=== PATIENT | female | born 1985 | race Caucasian/White ===

== ENCOUNTER 2018-02-01 02:14 | Inpatient (IN) ==
[2018-02-01] MEDS ORDERED: Propofol Inj 500 MG/50 ML Vial IV.PUSH ONE (02:19)
[2018-02-01] MEDS ORDERED: Propofol Inj 500 MG/50 ML Vial ONE (02:20)
[2018-02-01 02:44] LABS: Baso % (Auto) 0.5 % (0.0-2.0); Eos # (Auto) 0.1 th/mm3 (0.0-0.4); Eos % (Auto) 0.8 % (0.0-4.0); Hematocrit 36.7 % (35.0-46.0); Hemoglobin 12.3 gm/dL (11.6-15.3); Lymph # (Auto) 3.9 th/mm3 (1.0-4.8); Lymph % (Auto) 44.3 % (9.0-44.0); Mean Corpuscular HGB Conc 33.4 % (32.0-36.0); Mean Corpuscular Hemoglobin 29.6 pg (27.0-34.0); Mean Corpuscular Volume 88.6 fL (80.0-100.0); Mean Platelet Volume 8.3 fL (7.0-11.0); Mono # (Auto) 0.7 th/mm3 (0.0-0.9); Mono % (Auto) 7.4 % (0.0-8.0); Neut # (Auto) 4.1 th/mm3 (1.8-7.7); Platelet Count 312 th/mm3 (150-450); Red Blood Count 4.15 mil/mm3 (4.00-5.30); Red Cell Distribution Width 13.5 % (11.6-17.2); White Blood Count 8.8 th/mm3 (4.0-11.0)
[2018-02-01] MEDS: Propofol 1000 mg/100 ml Inj 1,000 MG/100 ML BOTTLE IV.CONT PRN ×2 (02:44→08:45)
[2018-02-01 03:01] LABS: Alanine Aminotransferase 14 U/L (10-53); Albumin 3.8 g/dL (3.4-5.0); Anion Gap 8 meq/L (5-15); Aspartate Aminotransferase 12 U/L (15-37); Blood Urea Nitrogen 12 mg/dL (7-18); Calcium 8.3 mg/dL (8.5-10.1); Carbon Dioxide 21.7 meq/L (21.0-32.0); Chloride 116 meq/L (98-107); Glomerular Filtration Rate 86 mL/min (>89); Glucose,Random 97 mg/dL (74-106); Potassium 3.1 meq/L (3.5-5.1); Sodium 146 meq/L (136-145)
[2018-02-01 03:04] LABS: Alkaline Phosphatase 55 U/L (45-117); Total Protein 7.2 g/dL (6.4-8.2)
[2018-02-01 03:09] LABS: Bacteria,Urine Rare /hpf; Bilirubin,Urine Negative (Negative); Clarity,Urine Clear (Clear); Color,Urine Straw (Yellw/Straw); Glucose,Urine (UA) Negative (Negative); Leukocyte Esterase,Urine Negative (Negative); Nitrite,Urine Negative (Negative); Specific Gravity,Urine 1.003 (1.002-1.035)
[2018-02-01 03:14] LABS: ABG Base Excess -6.7 mmol/L (-2-2); ABG PCO2 40 mmHg (38-42); ABG PO2 186 mmHg (61-120)
--- NOTE | 2018-02-01 03:21 | XR ---
EXAM DATE: 02/01/2018 3:04 AM EDT AGE/SEX: 32 years / Female INDICATIONS: Post intubation. CLINICAL DATA: This is the patient's initial encounter. Patient reports that signs and symptoms have been present for 1 day and indicates a pain score of Nonresponsive. MEDICAL/SURGICAL HISTORY: Non-responsive. Non-responsive. COMPARISON: No prior exams available for comparison. FINDINGS: Portable AP view of the chest demonstrates a normal-sized cardiac silhouette. Lungs are underinflated . Endotracheal tube is present with tip at the aortic knob level measuring 1.5 cm from the adriana. Na sogastric tube distal tip is in the stomach. EKG lines overlie the patient. Lungs are underinflated w ith mild atelectasis at the lung bases. No effusion, consolidation, or pneumothorax is identified. Th e bones and soft tissues demonstrate no acute finding. CONCLUSION: 1. Endotracheal tube tip measures 1.5 cm from the adriana. 2. Underinflated examination with mild atelectasis at the lung bases. Otherwise, no acute pulmonary abnormality is identified. Electronically signed by: Popeye Roberto MD 02/01/2018 3:19 AM EDT
--- NOTE | 2018-02-01 05:47 | ED ---
HPI General Chief Complaint: Altered Mental Status Stated Complaint: ETOH Time Seen by Provider: 02/01/18 02:18 History of Present Illness HPI narrative: Patient apparently was at a bar dancing and then slowly fell on the floor unresponsive EVAC found her covered in vomit and intubated her because she airway was uncontrolled unprotected airway intubated without complications in route he had to sedate her with etomidate and Versed now patient is intubated sedated and ROS and HPI is limited due to the fact the patient is intubated and unconscious due to severe intoxication Related Data Home Medications Medication Instructions Recorded Confirmed Unable to Obtain Home Meds 02/01/18 02/01/18 Allergies Allergy/AdvReac Type Severity Reaction Status Date / Time Sulfa (Sulfonamide Allergy Unknown Burning Verified 02/01/18 13:54 Antibiotics) Review of Systems ROS Unobtainable ROS Unobtainable: unobtainable due to endotracheal tube PMFSH Medical History Medical History Medical history unknown (Acute) Surgical history unknown (Acute) Surgical History Surgical History No history of previous surgery (Acute) Social History Social History Substance History: No History of Abuse Second Hand Smoke Exposure: No Smoking Status: Never smoker How Often Do You Have a Drink Containing Alcohol: 2 to 4 times a month Recent Travel in [facility] within the Last 8 Weeks: No Recent Out of Country Travel within the Last 8 Weeks: No Immunization History Tetanus Immunization: Unable to Assess Hx Influenza Vaccine This Season: Unable to Assess Exam Narrative Exam Narrative: GENERAL: sedated and intubated unresponsive recent etomidat and versed in EVAC SKIN: Warm and dry. HEAD: Atraumatic. Normocephalic. EYES: Pupils equal very dilated reactive sluggish No injection or drainage. ENT: No nasal bleeding or discharge. Mucous membranes pink and moist. ET TUBE IN PLACED CONFIRMED BY KATARINA LOZANO NECK: Trachea midline. No JVD. CARDIOVASCULAR: Regular rate and rhythm. RESPIRATORY: auscultated at axilla bilateral ET TUBE INFLATING GOOD CHEST RISE Breath sounds equal bilaterally. GASTROINTESTINAL: Abdomen soft, non-tender, nondistended. Hepatic and splenic margins not palpable. MUSCULOSKELETAL: Extremities without clubbing, cyanosis, or edema. No obvious deformities. NEUROLOGICAL: obtunded now sedated. Course Initial Documented Vital Signs Temperature 98.3 F 02/01/18 02:17 Pulse Rate 95 H 02/01/18 02:17 Respiratory Rate 16 02/01/18 02:17 Blood Pressure 116/77 02/01/18 02:17 Pulse Oximetry 100 02/01/18 02:17 Last Documented Vital Signs Temperature 98.0 F 02/02/18 12:00 Pulse Rate 97 H 02/02/18 12:00 Respiratory Rate 16 02/02/18 12:00 Blood Pressure 116/72 02/02/18 12:00 Pulse Oximetry 99 02/02/18 12:00 Critical Care Time Critical Care Time: Yes Total Critical Care Time: 30 Attestation: sedating for ventilator adjust vent settings and propfol drip ordered O2 sat re-eval frequently during ED stay until in ICU Medical Decision Making MDM Narrative Medical decision making narrative: pt sedated and vent settings adjusted and ABG and propfol rate adjusted and admit ICU Differential Diagnosis Differential Diagnosis: eoth overdose vs polysubstance overdose vs accidental opioid overdose vs rohipnol by another at club vs RX meds interacting with ETOH Lab Data Result diagrams: 02/01/18 02:33 02/02/18 07:16 Lab Results 02/01/18 02/01/18 02/01/18 Range/Units 02:33 02:33 02:33 WBC 8.8 (4.0-11.0) th/mm3 RBC 4.15 (4.00-5.30) mil/mm3 Hgb 12.3 (11.6-15.3) gm/dL Hct 36.7 (35.0-46.0) % MCV 88.6 (80.0-100.0) fL MCH 29.6 (27.0-34.0) pg MCHC 33.4 (32.0-36.0) % RDW 13.5 (11.6-17.2) % Plt Count 312 (150-450) th/mm3 MPV 8.3 (7.0-11.0) fL Neut % (Auto) 47.0 (16.0-70.0) % Lymph % (Auto) 44.3 H (9.0-44.0) % [place] % (Auto) 7.4 (0.0-8.0) % Eos % (Auto) 0.8 (0.0-4.0) % Baso % (Auto) 0.5 (0.0-2.0) % Neut # (Auto) 4.1 (1.8-7.7) th/mm3 Lymph # (Auto) 3.9 (1.0-4.8) th/mm3 [place] # (Auto) 0.7 (0.0-0.9) th/mm3 Eos # (Auto) 0.1 (0.0-0.4) th/mm3 Baso # (Auto) 0.0 (0.0-0.2) th/mm3 WBC Differential . Differential Comment Auto diff final Puncture Site Patient Temperature O2 Saturation (90-100) % ABG pH (7.380-7.420) ABG pCO2 (38-42) mmHg ABG pO2 (61-120) mmHg ABG HCO3 (22-26) mmol/L ABG O2 Content (12.0-20.0) Vol % ABG Base Excess (-2-2) mmol/L ABG Methemoglobin (0-2) % Yves Test Hemoglobin (12.0-16.0) G/DL Carboxyhemoglobin (0-4) % O2 Delivery Device Vent Setting Inspired O2 % Critical Value Sodium 146 H (136-145) meq/L Potassium 3.1 L (3.5-5.1) meq/L Chloride 116 H (98-107) meq/L Carbon Dioxide 21.7 (21.0-32.0) meq/L Anion Gap 8 (5-15) meq/L BUN 12 (7-18) mg/dL Creatinine 0.78 (0.50-1.00) mg/dL Estimated GFR 86 L (>89) mL/min POC Glucose (68-110) mg/dl Random Glucose 97 (74-106) mg/dL Calcium 8.3 L (8.5-10.1) mg/dL Total Bilirubin 0.1 L (0.2-1.0) mg/dL AST 12 L (15-37) U/L ALT 14 (10-53) U/L Alkaline Phosphatase 55 (45-117) U/L Troponin I Less than 0.02 L (0.02-0.05) ng/mL Total Protein 7.2 (6.4-8.2) g/dL Albumin 3.8 (3.4-5.0) g/dL Urine Color (Yellw/Straw) Urine Clarity (Clear) Urine pH (5.0-8.5) Ur Specific [place] (1.002-1.035) Urine Protein (Neg-Trace) mg/dL Urine Glucose (UA) (Negative) mg/dL Urine Ketones (Negative) mg/dL Urine Occult Blood (Negative) Urine Nitrate (Negative) Urine Bilirubin (Negative) Urine Urobilinogen (Less than 2) mg/dL Ur Leukocyte Esterase (Negative) Urine WBC (0-5) /hpf Urine Bacteria (None) /hpf Micro UA Comment Urine Culture Comments Nasal Screen MRSA (PCR) (Negative) Urine Opiates Screen (Neg) Acetaminophen Less than 2.0 L (10.0-30.0) mcg/mL Ur Barbiturates Screen (Neg) Ur Amphetamines Screen (Neg) U Benzodiazepines Scrn (Neg) Urine Cocaine Screen (Neg) U Cannabinoids Screen (Neg) Serum Alcohol 316 H (0-5) mg/dL 02/01/18 02/01/18 02/01/18 Range/Units 02:50 02:50 02:59 WBC (4.0-11.0) th/mm3 RBC (4.00-5.30) mil/mm3 Hgb (11.6-15.3) gm/dL Hct (35.0-46.0) % MCV (80.0-100.0) fL MCH (27.0-34.0) pg MCHC (32.0-36.0) % RDW (11.6-17.2) % Plt Count (150-450) th/mm3 MPV (7.0-11.0) fL Neut % (Auto) (16.0-70.0) % Lymph % (Auto) (9.0-44.0) % [place] % (Auto) (0.0-8.0) % Eos % (Auto) (0.0-4.0) % Baso % (Auto) (0.0-2.0) % Neut # (Auto) (1.8-7.7) th/mm3 Lymph # (Auto) (1.0-4.8) th/mm3 [place] # (Auto) (0.0-0.9) th/mm3 Eos # (Auto) (0.0-0.4) th/mm3 Baso # (Auto) (0.0-0.2) th/mm3 WBC Differential Differential Comment Puncture Site Right radial Patient Temperature 98.6 O2 Saturation 98 (90-100) % ABG pH 7.29 L* (7.380-7.420) ABG pCO2 40 (38-42) mmHg ABG pO2 186 H (61-120) mmHg ABG HCO3 19 L (22-26) mmol/L ABG O2 Content 15.4 (12.0-20.0) Vol % ABG Base Excess -6.7 L (-2-2) mmol/L ABG Methemoglobin 0.8 (0-2) % Yves Test Present Hemoglobin 10.9 L (12.0-16.0) G/DL Carboxyhemoglobin 0.8 (0-4) % O2 Delivery Device Ventilator Vent Setting Prvc/ac Inspired O2 40 % Critical Value Yes Sodium (136-145) meq/L Potassium (3.5-5.1) meq/L Chloride (98-107) meq/L Carbon Dioxide (21.0-32.0) meq/L Anion Gap (5-15) meq/L BUN (7-18) mg/dL Creatinine (0.50-1.00) mg/dL Estimated GFR (>89) mL/min POC Glucose (68-110) mg/dl Random Glucose (74-106) mg/dL Calcium (8.5-10.1) mg/dL Total Bilirubin (0.2-1.0) mg/dL AST (15-37) U/L ALT (10-53) U/L Alkaline Phosphatase (45-117) U/L Troponin I (0.02-0.05) ng/mL Total Protein (6.4-8.2) g/dL Albumin (3.4-5.0) g/dL Urine Color Straw (Yellw/Straw) Urine Clarity Clear (Clear) Urine pH 6.0 (5.0-8.5) Ur Specific [place] 1.003 (1.002-1.035) Urine Protein Negative (Neg-Trace) mg/dL Urine Glucose (UA) Negative (Negative) mg/dL Urine Ketones Negative (Negative) mg/dL Urine Occult Blood Negative (Negative) Urine Nitrate Negative (Negative) Urine Bilirubin Negative (Negative) Urine Urobilinogen Less than 2 (Less than 2) mg/dL Ur Leukocyte Esterase Negative (Negative) Urine WBC Less than 1 (0-5) /hpf Urine Bacteria Rare H (None) /hpf Micro UA Comment Cath-culture ind Urine Culture Comments Cath-cult indicated Nasal Screen MRSA (PCR) (Negative) Urine Opiates Screen Neg (Neg) Acetaminophen (10.0-30.0) mcg/mL Ur Barbiturates Screen Neg (Neg) Ur Amphetamines Screen Neg (Neg) U Benzodiazepines Scrn Pos H (Neg) Urine Cocaine Screen Neg (Neg) U Cannabinoids Screen Neg (Neg) Serum Alcohol (0-5) mg/dL 02/01/18 02/01/18 02/02/18 Range/Units 12:24 14:06 07:16 WBC (4.0-11.0) th/mm3 RBC (4.00-5.30) mil/mm3 Hgb (11.6-15.3) gm/dL Hct (35.0-46.0) % MCV (80.0-100.0) fL MCH (27.0-34.0) pg MCHC (32.0-36.0) % RDW (11.6-17.2) % Plt Count (150-450) th/mm3 MPV (7.0-11.0) fL Neut % (Auto) (16.0-70.0) % Lymph % (Auto) (9.0-44.0) % [place] % (Auto) (0.0-8.0) % Eos % (Auto) (0.0-4.0) % Baso % (Auto) (0.0-2.0) % Neut # (Auto) (1.8-7.7) th/mm3 Lymph # (Auto) (1.0-4.8) th/mm3 [place] # (Auto) (0.0-0.9) th/mm3 Eos # (Auto) (0.0-0.4) th/mm3 Baso # (Auto) (0.0-0.2) th/mm3 WBC Differential Differential Comment Puncture Site Patient Temperature O2 Saturation (90-100) % ABG pH (7.380-7.420) ABG pCO2 (38-42) mmHg ABG pO2 (61-120) mmHg ABG HCO3 (22-26) mmol/L ABG O2 Content (12.0-20.0) Vol % ABG Base Excess (-2-2) mmol/L ABG Methemoglobin (0-2) % Yves Test Hemoglobin (12.0-16.0) G/DL Carboxyhemoglobin (0-4) % O2 Delivery Device Vent Setting Inspired O2 % Critical Value Sodium 141 (136-145) meq/L Potassium 3.9 D (3.5-5.1) meq/L Chloride 112 H (98-107) meq/L Carbon Dioxide 20.0 L (21.0-32.0) meq/L Anion Gap 9 (5-15) meq/L BUN 7 (7-18) mg/dL Creatinine 0.53 (0.50-1.00) mg/dL Estimated GFR Greater than 89 (>89) mL/min POC Glucose 95 (68-110) mg/dl Random Glucose 83 (74-106) mg/dL Calcium 8.1 L (8.5-10.1) mg/dL Total Bilirubin 0.9 (0.2-1.0) mg/dL AST 18 (15-37) U/L ALT 13 (10-53) U/L Alkaline Phosphatase 59 (45-117) U/L Troponin I (0.02-0.05) ng/mL Total Protein 6.7 (6.4-8.2) g/dL Albumin 3.4 (3.4-5.0) g/dL Urine Color (Yellw/Straw) Urine Clarity (Clear) Urine pH (5.0-8.5) Ur Specific [place] (1.002-1.035) Urine Protein (Neg-Trace) mg/dL Urine Glucose (UA) (Negative) mg/dL Urine Ketones (Negative) mg/dL Urine Occult Blood (Negative) Urine Nitrate (Negative) Urine Bilirubin (Negative) Urine Urobilinogen (Less than 2) mg/dL Ur Leukocyte Esterase (Negative) Urine WBC (0-5) /hpf Urine Bacteria (None) /hpf Micro UA Comment Urine Culture Comments Nasal Screen MRSA (PCR) Not detected (Negative) Urine Opiates Screen (Neg) Acetaminophen (10.0-30.0) mcg/mL Ur Barbiturates Screen (Neg) Ur Amphetamines Screen (Neg) U Benzodiazepines Scrn (Neg) Urine Cocaine Screen (Neg) U Cannabinoids Screen (Neg) Serum Alcohol (0-5) mg/dL Imaging Data Radiologist's impression: Chest X-Ray 02/01/18 02:42 CONCLUSION: 1. Endotracheal tube tip measures 1.5 cm from the adriana. 2. Underinflated examination with mild atelectasis at the lung bases. Otherwise , no acute pulmonary abnormality is identified. Head CT 02/01/18 06:55 CONCLUSION: 1. No acute intracranial abnormality . Discharge Plan Discharge Disposition Patient Disposition: 01 Discharge Home Discharge Condition Condition: Stable Discharge Order Discharge Orders: Discharge Order (Routine); Ordered 02/02/18 Ordered By: Nuzhat Khan Discharge Details Anticipated Discharge Date: 02/02/18 Physicians Team ED Provider: Yazan Munroe Primary Care Provider: UNKNOWN, Attending Provider: Nuzhat Khan Status ED Status: Left Department Discharge Information Discharge Date/Time: 02/01/18 11:24
[2018-02-01 06:14] LABS: Amphetamine Screen,Urine Neg (Neg); Barbiturate Screen,Urine Neg (Neg); Cannabinoid Screen,Urine Neg (Neg); Cocaine Screen,Urine Neg (Neg)
[2018-02-01 06:15] LABS: Opiate Screen,Urine Neg (Neg)
--- NOTE | 2018-02-01 07:43 | P.HPCC ---
History of Present Illness Primary Care Physician: UNKNOWN History of Present Illness: 32 y/o female apparently was at a bar dancing and then slowly fell on the floor unresponsive. EVAC found her covered in vomit and intubated her because she was not protecting her airway. Patient was intubated without complications, in route EMS had to sedate her with etomidate and Versed. Patient was evaluated in the ER following her arrival was noted to have dilated pupils with sluggish response to light. She was placed on mechanical ventilation and propofol for sedation as she is starting to fight the ventilator. Patient was accepted for admission by critical care medicine service. When I evaluated the patient in the ER she was sedated with propofol at 50 mics per KG per minute however her pupils are still dilated and sluggish bilaterally. Urine tox screen was positive for benzodiazepines only and her EtOH level was in the 300s. I ordered a stat head CT which was pending. History was obtained by reviewing records and discussion with ER physician and nursing staff. No friends or family available in the ER at the time of my evaluation. Inpatient Certification: I certify that the inpatient services were ordered in accordance with Medicare regulations governing the order. This includes certification that hospital inpatient services are reasonable and necessary and in the case of services not specified as inpatient-only under 42 CFR 419.22(n), that they are appropriately provided as inpatient services in accordance to with the 2-midnight benchmark under 43 CFR 412.3(e) Estimated Total Length of Stay (Days): 3 Plans for Post Hospital Care: Not yet determined Review of Systems unobtainable due to endotracheal tube PMFSH - History History Provided By: Field Spec / EMT - Medical / Surgical Hx Neg / Unobtainable Medical Problems Denied: Unable to Obtain Surgical History: Unable to Obtain - Medical History Medical History: Medical History (Last Updated 02/01/18 @ 02:21 by Paola aGrcía) Medical history unknown Surgical history unknown - Surgical History Surgical History: Surgical History (Last Updated 02/01/18 @ 02:21 by Paola García) No history of previous surgery - Tobacco History Smoking Status: Unknown if ever smoked - Alcohol History How Often Do You Have a Drink Containing Alcohol: Unable to Obtain - Travel History Recent Travel in the [place] Within the Last 8 Weeks: No Recent Travel Out of the Country Within the Last 8 Weeks: No - Immunization History Tetanus Immunization: Unable to Assess Hx Influenza Vaccine This Season: Unable to Assess Medications and Allergies Active Medications: Active Medications Albuterol (Duoneb Neb (Prn)) 1 ampul NEB Q2HR NEB PRN PRN Reason: WHEEZING Albuterol (Duoneb Neb (Jeniffer)) 1 ampul NEB Q6HR ALT NEB JENIFFER Chlorhexidine Gluconate (Chlorhexidine 2% Cloth) 3 pack TOPICAL DAILY@0400 JENIFFER Stop: 02/07/18 03:59 Chlorhexidine Gluconate (Chlorhexidine 2% Cloth) 3 pack TOPICAL DAILY@0400 PRN PRN Reason: Extra cloth needed Stop: 02/07/18 03:59 Famotidine (Pepcid) 20 mg NG/OG BID JENIFFER Famotidine (Pepcid) 20 mg PO BID JENIFFER Famotidine (Pepcid Pf Inj) 20 mg IV.PUSH Q12HR JENIFFER Propofol (Diprivan 1000 Mg/100 Ml Inj) 1,000 mg in 100 mls @ 2.041 mls/hr IV.CONT TITRATE PRN; Protocol PRN Reason: Per Protocol Last Titration: 02/01/18 05:58 Dose: 50 mcg/kg/min, 20.41 mls/hr Dextrose/Sodium Chloride (D5w/Normal Saline Inj) 1,000 mls @ 125 mls/hr IV.CONT .Q8H JENIFFER Midazolam HCl (Versed Inj) 2 mg IV.PUSH Q4H PRN PRN Reason: AGITATION Sodium Chloride (Ns Flush) 2 ml IV.FLUSH PRN PRN PRN Reason: FLUSH AFTER USING IV ACCESS Allergies Allergy/AdvReac Type Severity Reaction Status Date / Time No Allergy Information Allergy Unverified 02/01/18 02:17 Available Home Medications Medication Instructions Recorded Confirmed Type Unable to Obtain Home Meds 02/01/18 02/01/18 History Results - Labs CBC & Chem 7: 02/01/18 02:33 02/01/18 02:33 Labs: Short CBC 02/01/18 Range/Units 02:33 WBC 8.8 (4.0-11.0) th/mm3 Hgb 12.3 (11.6-15.3) gm/dL Hct 36.7 (35.0-46.0) % Plt Count 312 (150-450) th/mm3 BMP 02/01/18 02:33 Sodium 146 H Potassium 3.1 L Chloride 116 H Carbon Dioxide 21.7 BUN 12 Creatinine 0.78 Calcium 8.3 L Cardiac Enzymes 02/01/18 Range/Units 02:33 Troponin I Less than 0.02 L (0.02-0.05) ng/mL Liver Function 02/01/18 Range/Units 02:33 Total Bilirubin 0.1 L (0.2-1.0) mg/dL AST 12 L (15-37) U/L ALT 14 (10-53) U/L Alkaline Phosphatase 55 (45-117) U/L Albumin 3.8 (3.4-5.0) g/dL Urine 02/01/18 Range/Units 02:50 Urine Color Straw (Yellw/Straw) Urine Clarity Clear (Clear) Urine pH 6.0 (5.0-8.5) Ur Specific [place] 1.003 (1.002-1.035) Urine Protein Negative (Neg-Trace) mg/dL Urine Glucose (UA) Negative (Negative) mg/dL - Imaging Impressions Chest X-Ray 02/01/18 02:42 CONCLUSION: 1. Endotracheal tube tip measures 1.5 cm from the adriana. 2. Underinflated examination with mild atelectasis at the lung bases. Otherwise , no acute pulmonary abnormality is identified. Exam Vital signs: Vital Signs 02/01/18 02:17 02/01/18 02:25 02/01/18 02:28 Temperature 98.3 F Pulse Rate 95 H 94 H Respiratory Rate 16 14 13 Blood Pressure 116/77 104/66 Pulse Oximetry 100 100 100 02/01/18 03:00 02/01/18 03:13 02/01/18 03:30 Temperature Pulse Rate 84 106 H Respiratory Rate 17 14 Blood Pressure 117/74 120/75 Pulse Oximetry 100 100 100 02/01/18 03:45 02/01/18 04:00 02/01/18 05:00 Temperature Pulse Rate 94 H 94 H 94 H Respiratory Rate 14 14 14 Blood Pressure 106/77 116/81 115/79 Pulse Oximetry 100 100 100 02/01/18 05:05 02/01/18 06:00 Temperature Pulse Rate 93 H Respiratory Rate 15 14 Blood Pressure 116/81 Pulse Oximetry 100 100 Intake & Output 01/31/18 02/01/18 02/01/18 18:59 06:59 18:59 Output Total 1800 / 1800 Balance -1800 / -1800 Weight 68.039 kg Output: Urine Amount (Catheter) 1799 / 1799 Indwelling Urethral Catheter 1799 Narrative: HEENT/ Neuro: Sedated, orally intubated, pupils 4 mm bilaterally slightly reacting to light, no pallor, no icterus, tongue/ mucosa dry Neck: No JVD Chest/Pulm: on mech vent, good air entry bilaterally, no wheezing or crackles CVS: S1-S2 regular, no murmur GI/abdomen: soft, nontender, bowel sounds sluggish Extremities: warm bilaterally, no edema Caprini VTE Risk Assessment Caprini VTE Risk Assessment: Moderate/High Risk (score >= 2) Caprini Risk Assessment Model: Point Value = 1 Point Value = 2 Point Value = 3 Point Value = 5 Age 41-60 Minor surgery BMI > 25 kg/m2 Swollen legs Varicose veins or History of unexplained or recurrent spontaneous Oral contraceptives or hormone replacement Sepsis (< 1 month) Serious lung disease, including pneumonia (< 1 month) Abnormal pulmonary function Acute myocardial infarction Congestive heart failure (< 1 month) History of inflammatory bowel disease Medical patient at bed rest Age 61-74 Arthroscopic surgery Major open surgery (> 45 min) Laparoscopic surgery (> 45 min) Malignancy Confined to bed (> 72 hours) Immobilizing plaster cast Central venous access Age >= 75 History of VTE Family history of VTE Factor V Leiden Prothrombin 26131P Lupus anticoagulant Anticardiolipin antibodies Elevated serum homocysteine Heparin-induced thrombocytopenia Other congenital or acquired thrombophilia Stroke (< 1 month) Elective arthroplasty Hip, pelvis, or leg fracture Acute spinal cord injury (< 1 month) Prophylaxis Regimen: Total Risk Factor Score Risk Level Prophylaxis Regimen 0-1 Low Early ambulation 2 Moderate Order ONE of the following: *Sequential Compression Device (SCD) *Heparin 5000 units SQ BID 3-4 Higher Order ONE of the following medications: *Heparin 5000 units SQ TID *Enoxaparin/Lovenox 40 mg SQ daily (WT < 150 kg, CrCl > 30 mL/min) *Enoxaparin/Lovenox 30 mg SQ daily (WT < 150 kg, CrCl > 10-29 mL/min) *Enoxaparin/Lovenox 30 mg SQ BID (WT < 150 kg, CrCl > 30 mL/min) AND/OR *Sequential Compression Device (SCD) 5 or more Highest Order ONE of the following medications: *Heparin 5000 units SQ TID (Preferred with Epidurals) *Enoxaparin/Lovenox 40 mg SQ daily (WT < 150 kg, CrCl > 30 mL/min) *Enoxaparin/Lovenox 30 mg SQ daily (WT < 150 kg, CrCl > 10-29 mL/min) *Enoxaparin/Lovenox 30 mg SQ BID (WT < 150 kg, CrCl > 30 mL/min) AND *Sequential Compression Device (SCD) Assessment and Plan - Assessment and Plan Plan: 32-year-old female with: Encephalopathy most likely secondary to EtOH intoxication and unknown substance abuse causing pupillary dilation Alcohol intoxication Aspiration Acute respiratory failure on mechanical ventilation Plan: Neuro: Sedation with propofol while intubated with daily sedation vacation. Versed as needed for vent synchrony and agitation. Urine tox screen for benzodiazepines however pupillary dilation not explained and may be secondary to additional illicit substance abuse. Cocaine negative on tox screen. Stat head CT pending. Cardiovascular: IV hydration, watch for hypotension. Pulmonary: Continue mechanical ventilation, vent bundle, bronchodilators as needed. Await improvement in neurologic status prior to initiating CPAP trials. GI/liver: N.p.o. for now. OG tube to low intermittent wall suction. If unable to extubate by tomorrow we will initiate tube feeds. Renal/: IV hydration, strict intake output, monitor and replete electrolytes, follow BUN/creatinine. ID: Watch for fever/leukocytosis. Hold off on antibiotics at this time. Heme: Follow CBC Endocrine: Watch for hyperglycemia, SSI for glycemic control if needed. Prophylaxis: Pepcid, SCDs. Initiate Lovenox if head CT negative for bleed. Condition critical. Time spent on critical care excluding procedures 50 minutes
[2018-02-01] MEDS ORDERED: Potassium Phosphate Inj 30 MMOL in Sodium Chlor 0.9% Inj 250 ML IV.SIG PRN (07:46)
[2018-02-01] MEDS ORDERED: Sodium Phosphate Inj 30 MMOL in Sodium Chlor 0.9% Inj 250 ML IV.SIG PRN (07:46)
[2018-02-01] MEDS ORDERED: Potassium Chloride 25 MEQ Effervescent Tablet PO PRN (07:46)
[2018-02-01] MEDS ORDERED: Potassium Chlor 40 mEq Premix 40 MEQ/100 ML PIGGYBACK IV.SIG PRN ×2 (07:46)
[2018-02-01] MEDS ORDERED: Magnesium Sulfate Inj 4 GM in Sodium Chlor 0.9% Inj 92 ML IV.SIG PRN (07:46)
[2018-02-01] MEDS ORDERED: Potassium Chlor 20 mEq Premix 20 MEQ/100 ML PIGGYBACK IV.SIG PRN ×2 (07:46)
[2018-02-01] MEDS ORDERED: Magnesium Oxide 400 MG Tablet PO PRN (07:46)
[2018-02-01] MEDS ORDERED: Magnesium Sulfate Inj 2 GM in Sodium Chlor 0.9% Inj 96 ML IV.SIG PRN (07:46)
[2018-02-01] MEDS ORDERED: Potassium Phosphate 500 MG Soluble Tablet PO PRN ×2 (07:46)
--- NOTE | 2018-02-01 07:57 | CT ---
EXAM DATE: 02/01/2018 7:51 AM EDT AGE/SEX: 32 years / Female INDICATIONS: Altered mental status. CLINICAL DATA: This is the patient's initial encounter. Patient reports that signs and symptoms have been present for 1 day and indicates a pain score of Nonresponsive. MEDICAL/SURGICAL HISTORY: Non-responsive. Non-responsive. RADIATION DOSE: 56.35 CTDI (mGy) COMPARISON: No prior exams available for comparison. TECHNIQUE: CT of the head without contrast. Using automated exposure control and adjustment of the mA and/or kV according to patient size, radiation dose was kept as low as reasonably achievable to ob tain optimal diagnostic quality images. DICOM format image data is available electronically for revi ew and comparison. FINDINGS: Cerebrum: The ventricles are normal for age. No evidence of midline shift, mass lesion, hemorrhage or acute infarction. No extraaxial fluid collections are seen. Posterior Fossa: The cerebellum and brainstem are intact. The 4th ventricle is midline. The cerebe llopontine angle is unremarkable. Extracranial: The visualized portion of the orbits is intact. Skull: The calvaria is intact. No evidence of skull fracture. CONCLUSION: 1. No acute intracranial abnormality . Electronically signed by: Devon Carnes MD 02/01/2018 7:56 AM EDT
[2018-02-01] MEDS: Dextrose 5%/NaCl 0.9% Inj 1,000 ML IV.CONT SCH ×2 (07:59→16:07)
[2018-02-01] MEDS: Famotidine 20 MG Tablet NG/OG SCH ×2 (09:44→20:43)
[2018-02-01] MEDS: Famotidine 20 MG Tablet PO SCH ×2 (09:45→20:43)
--- NOTE | 2018-02-01 09:57 | ECG ---
Date Performed: 02/01/2018 Time Performed: 02:41:58 PTAGE: 32 years EKG: Sinus rhythm INCOMPLETE RIGHT BUNDLE BRANCH BLOCK BORDERLINE ECG NO PREVIOUS TRACING DOCTOR: Guillermo Armstrong Interpretating Date/Time 02/01/2018 09:57:01
[2018-02-01] MEDS: Famotidine PF Inj 20 MG/2 ML Vial IV.PUSH SCH ×2 (10:13→20:43)
[2018-02-01] MEDS: Potassium Chlor 20 mEq Premix 20 MEQ/100 ML PIGGYBACK IV.SIG SCH (18:37)
[2018-02-02] MEDS: Potassium Chlor 20 mEq Premix 20 MEQ/100 ML PIGGYBACK IV.SIG SCH ×3 (00:03→05:59)
[2018-02-02] MEDS: Dextrose 5%/NaCl 0.9% Inj 1,000 ML IV.CONT SCH ×2 (00:04→11:25)
[2018-02-02 01:23] VITALS: O2SAT 99
[2018-02-02] MEDS ORDERED: Chlorhexidine Gluconate 2% 1 Pack (2 Cloths) TOPICAL PRN (04:00)
[2018-02-02] MEDS ORDERED: Chlorhexidine Gluconate 2% 1 Pack (2 Cloths) TOPICAL SCH (04:00)
[2018-02-02] MEDS: Famotidine 20 MG Tablet PO SCH (08:00)
[2018-02-02 08:35] VITALS: RESP 16
[2018-02-02 08:57] LABS: Albumin 3.4 g/dL (3.4-5.0); Anion Gap 9 meq/L (5-15); Aspartate Aminotransferase 18 U/L (15-37); Blood Urea Nitrogen 7 mg/dL (7-18); Calcium 8.1 mg/dL (8.5-10.1); Chloride 112 meq/L (98-107); Glomerular Filtration Rate Greater Than 89 mL/min (>89); Glucose,Random 83 mg/dL (74-106); Potassium 3.9 meq/L (3.5-5.1); Sodium 141 meq/L (136-145)
[2018-02-02 09:01] LABS: Alanine Aminotransferase 13 U/L (10-53); Alkaline Phosphatase 59 U/L (45-117); Total Protein 6.7 g/dL (6.4-8.2)
[2018-02-02] MEDS: Famotidine 20 MG Tablet NG/OG SCH (09:13)
[2018-02-02] MEDS: Famotidine PF Inj 20 MG/2 ML Vial IV.PUSH SCH (09:13)
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
[2018-02-02 12:34] VITALS: BP 116/72; PULSE 97; TEMP 98
== END 2018-02-02 12:35 | disposition home or self-care (01) ==
LOC: NEPE 02:14 → NEDA 06:25 → HIMC 11:10 → N06 17:57
PROVIDERS: ADMIT Family Medicine; ATTEND Family Medicine